=== PATIENT | male | born 1990 | race Caucasian/White ===

== ENCOUNTER 2016-06-25 01:28 | Emergency (ER) | payer OTHER ==
[2016-06-25 03:21] VITALS: BP 146/83
== END 2016-06-25 03:21 | disposition home or self-care (01) ==
LOC: ED 01:28
DX: J03.90 Acute tonsillitis, unspecified (principal); Z88.1 Allergy status to other antibiotic agents
CPT/HCPCS: J0561; J1100

== ENCOUNTER 2017-02-07 04:12 | Emergency (ER) | payer SELFPAY ==
[~2017-02-07] VITALS: Ht 162.6 cm; Wt 115.2 kg
[2017-02-07 05:44] LABS: CALCIUM 8.8 mg/dL (8.5-10.1); CARBON DIOXIDE 25.8 mmol/L (21-32); CHLORIDE SERUM 106 mmol/L (98-107); CREATININE SERUM 0.7 mg/dL (0.7-1.3); GFR1 > 60 mL/min; GLUCOSE SERUM 108 mg/dL (74-106); POTASSIUM SERUM 3.9 mmol/L (3.5-5.1); SODIUM SERUM 138 mmol/L (136-145)
[2017-02-07 06:05] VITALS: BP 134/78
== END 2017-02-07 06:05 | disposition home or self-care (01) ==
LOC: ED 04:12
PROVIDERS: Emergency Medicine
DX: R10.9 Unspecified abdominal pain (principal); R11.2 Nausea with vomiting, unspecified; Z88.1 Allergy status to other antibiotic agents
CPT/HCPCS: J0780; Q0162

== ENCOUNTER 2018-03-19 02:41 | Emergency (ER) | payer OTHER ==
[~2018-03-19] VITALS: Ht 162.6 cm; Wt 125.2 kg
[2018-03-19 02:45] VITALS: Ht 162.6 cm; Wt 125.2 kg
[2018-03-19 04:36] LABS: AMPHETAMINE QUAL UR NONE DETECTED (See below)
[2018-03-19 04:43] LABS: BASOPHIL % 0.1 % (0-2); PLATELET COUNT 199 x10^3mcL (130-400); RED CELL DISTRIBUTION WIDTH 14.4 % (11.5-14.5)
[2018-03-19 04:53] LABS: CALCIUM 8.3 mg/dL (8.5-10.1); CARBON DIOXIDE 24.5 mmol/L (21-32); CHLORIDE SERUM 104 mmol/L (98-107); CREATININE SERUM 1.1 mg/dL (0.7-1.3); GFR1 > 60 mL/min; GLUCOSE SERUM 126 mg/dL (74-106); POTASSIUM SERUM 4.5 mmol/L (3.5-5.1); SODIUM SERUM 139 mmol/L (136-145)
[2018-03-19 04:58] LABS: ALBUMIN 3.5 g/dL (3.4-5.0); ALKALINE PHOSPHATASE 77 U/L (46-116); ALT/SGPT 97 U/L (16-63); AST/SGOT 33 U/L (15-37); BILIRUBIN TOTAL 0.29 mg/dL (0.20-1.00); TOTAL PROTEIN, SERUM 7.5 g/dL (6.4-8.2)
[2018-03-19 05:43] VITALS: BP 101/62
== END 2018-03-19 05:43 | disposition home or self-care (01) ==
LOC: ED 02:41
PROVIDERS: Emergency Medicine
DX: J20.9 Acute bronchitis, unspecified (principal); Z88.1 Allergy status to other antibiotic agents
CPT/HCPCS: 36415; 82962; 87804; J1885; J7030; Q0092

== ENCOUNTER 2020-03-26 01:26 | Emergency (ER) | payer SELFPAY ==
[~2020-03-26] VITALS: Ht 162.6 cm; Wt 113.4 kg
[2020-03-26 01:28] VITALS: Ht 162.6 cm; Wt 113.4 kg
[2020-03-26 03:01] VITALS: BP 122/62
== END 2020-03-26 03:01 | disposition home or self-care (01) ==
LOC: ED 01:26
DX: U07.1 COVID-19 (principal); Z88.1 Allergy status to other antibiotic agents
CPT/HCPCS: U0003